=== PATIENT | male | born 1985 | race African-American/Black ===

== ENCOUNTER 2016-12-20 21:14 | Emergency (ER) | payer SELFPAY ==
[2016-12-20 21:26] VITALS: BP 129/66; PULSE 79; TEMP 97.8; BMI 27.2
[2016-12-20] MEDS ORDERED: NAPROXEN 500 MG TABLET (FP) PO ONE (21:39)
--- NOTE | 2016-12-20 21:39 | PDOC ---
History of Present Illness - General History Source: Patient Exam Limitations: No Limitations <Randee Enrique I - Last Filed: 12/20/16 21:42> - General History Source: Patient Exam Limitations: No Limitations <MatheusHelga - Last Filed: 12/20/16 21:45> - General Chief Complaint: Chest Pain Stated Complaint: CP Time Seen by Provider: 12/20/16 21:16 - History of Present Illness Initial Comments: 12/20/16 21:40 A portion of this note was documented by scribe services under my direction. I have reviewed the details of the note, within reason, and agree with the documentation. The case summary and management plan written by me. Assessment and plan: This is a 31-year-old male who comes in with 2 months of constant substernal chest pain that is worse when he leans over and sometimes worse when he takes deep breath but this was earlier on when he had the pain but not now. Patient denies any associated symptoms of nausea, diaphoresis or shortness of breath. Patient has not seen anybody for the pain or taken anything for the pain. Patient's exam was otherwise normal he was given Naprosyn and a referral to Dr. Dumont for follow-up. (Randee Enrique I ) 12/20/16 21:44 The patient is a 31 year old male, with no significant past medical history, who presents to the emergency department complaining of chest pain for approximately 2 months. The patient reports the pain is constant and localized to the lower sternal area. He reports when his pain first began it was pleuritic in nature. The patient reports the pain is exacerbated when bending over. He states he occasionally feels lethargic secondary to pain. The patient denies any associated shortness of breath, diaphoresis, or palpitations. The patient reports he has not taken anything for the pain or followed up with a primary care provider for evaluation. The patient denies any nausea, vomiting, diarrhea, constipation, or changes in urination patterns. The patient denies any fever, chills, cough, headache, or dizziness. PAST MEDICAL HISTORY: No significant history PAST SURGICAL HISTORY: No significant history FAMILY HISTORY: No pertinent history SOCIAL HISTORY: Pt lives with family and is employed. MEDICATIONS: Reviewed ALLERGIES: As per nursing notes General: Yes: +lethargy. No fevers or chills, no weakness, no weight loss HEENT: No change in vision. No sore throat. No ear pain CardioVascular: Yes: +chest pain. No shortness of breath Respiratory: No cough, or wheezing. Gastrointestinal: No nausea, vomiting, diarrhea or constipation. No rectal bleeding Genitourinary: No dysuria, hematuria, or frequency Musculoskeletal: No joint or muscle pain or swelling Neurologic: No headache, vertigo, dizziness or loss of consciousness Psychiatric: No depression Skin: No rashes or easy bruising Endocrine: no increased thirst or abnormal weight change Allergic: no skin or latex allergy All other systems reviewed and normal General: Well-nourished well-developed individual, no acute distress HEENT: Throat: Normal, tonsils normal, no erythema or exudate Neck: Supple, no meningeal signs, no lymphadenopathy Eyes: Pupils equal reactive and round, extraocular motion intact Chest: Pain is reproduced on palpation of the lower sternal area. Cardiac: S1-S2 normal, regular rate and rhythm, no murmurs rubs or gallops Respiratory: Lungs clear to auscultation bilateral Abdomen: Soft, nondistended, normal bowel sounds, nontender to palpation diffusely Extremities: Warm, dry, no cyanosis, clubbing, or edema Skin: No rashes Neuro: Alert and oriented x3, nonfocal exam, grossly intact, normal gait Psych: Normal mood and affect (Helga Jarvis) Past History - Psycho/Social/Smoking Cessation Hx Anxiety: No Suicidal Ideation: No Smoking History: Unknown if ever smoked Have you smoked in the past 12 months: No Number of Cigarettes Smoked Daily: 0 Information on smoking cessation initiated: No Hx Alcohol Use: No Drug/Substance Use Hx: No Substance Use Type: None <Randee Enrique I - Last Filed: 12/20/16 21:42> <Helga Jarvis - Last Filed: 12/20/16 21:45> - Past Medical History Allergies/Adverse Reactions: Allergies Allergy/AdvReac Type Severity Reaction Status Date / Time No Known Allergies Allergy Verified 05/28/16 23:32 Home Medications: Ambulatory Orders Naproxen [Naprosyn -] 500 mg PO BID #14 tablet 12/20/16 - Vital Signs Last Vital Signs Temp Pulse Resp BP Pulse Ox 97.8 F 79 14 129/66 100 12/20/16 21:22 12/20/16 21:22 12/20/16 21:22 12/20/16 21:22 12/20/16 21:22 - Medications Given in the ED: ED Medications Discontinued Medications Generic Name Dose Route Start Last Admin Trade Name Dorian PRN Reason Stop Dose Admin Naproxen 500 mg 12/20/16 21:39 12/20/16 21:42 Naprosyn - PO 12/20/16 21:40 500 mg ONCE ONE Administration *DC/Admit/Observation/Transfer - Discharge Dispostion Admit: No <Randee Enrique I - Last Filed: 12/20/16 21:42> <Helga Jarvis - Last Filed: 12/20/16 21:45> Diagnosis at time of Disposition: Chest wall pain - Discharge Dispostion Disposition: HOME Condition at time of disposition: Good - Prescriptions Prescriptions: Naproxen [Naprosyn -] 500 mg PO BID #14 tablet - Referrals Referrals: Niru Kilgore MD [Staff Physician] - - Patient Instructions Additional Instructions: For the pain take Naprosyn 1 tablet twice a day with food don't take on an empty stomach do this for 7 days. If after 7 days you're not improved follow-up with Dr. Dumont. Return to the emergency department immediately with ANY new, persistent or worsening symptoms. Continue any medications as previously prescribed by your physician. You should follow up with your primary doctor as soon as possible regarding today's emergency department visit. . Please make sure your doctor reviews the results of your emergency evaluation. Thank you for coming to the Emergency Department today for your care. It was a pleasure to see you today. Please note that your evaluation is INCOMPLETE until you follow-up with your doctor. - Attestations Scribe Attestion: 12/20/16 21:45 Documentation prepared by Helga Jarvis, acting as medical office receptionist assistant for Randee Enrique MD. (Helga Jarvis)
[2016-12-20] MEDS ORDERED: NAPROXEN 500 MG TABLET (FP) ONE (21:44)
== END 2016-12-20 21:45 | disposition home or self-care (01) ==
LOC: FER 21:14
DX: R07.89 Other chest pain (principal)
CPT/HCPCS: 99282-25

== ENCOUNTER 2017-01-20 00:50 | Emergency (ER) | payer SELFPAY ==
--- NOTE | 2017-01-20 00:52 | PDOC ---
History of Present Illness - General Chief Complaint: Pain, Acute Stated Complaint: BACK PAIN Time Seen by Provider: 01/20/17 00:52 History Source: Patient Exam Limitations: No Limitations - History of Present Illness Initial Comments: 01/20/17 01:12 This is a 31-year-old male who comes in complaining of left-sided back pain. Patient denies any associated symptoms of nausea or radiation. 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 Patient took one ibuprofen for the pain earlier in the day and otherwise has not taken anything for the pain. Patient denies history of similar pain in the past. Patient denies any urinary symptoms of frequency dysuria or hematuria. PAST MEDICAL HISTORY: no significant history PAST SURGICAL HISTORY: no significant history FAMILY HISTORY: no pertinant history SOCIAL HISTORY: Pt lives with family and is employed. MEDICATIONS: reviewed ALLERGIES: As per nursing notes Review of Systems General: No fevers or chills, no weakness, no weight loss HEENT: No change in vision. No sore throat,. No ear pain CardioVascular: No chest pain or shortness of breath Respiratory:No cough, or wheezing. Gastrointestinal: no nausea, vomitting, diarrhea or constipation, No rectal bleeding Genitourinary: No dysuria, hematuria, or frequency Musculoskeletal: + Back pain as per history of present illness Neurologic: No headache, vertigo, dizziness or loss of consciousness Psychiatric: nor depression Skin: No rashes or easy bruising Endocrine: no increased thirst or abnormal weight change Allergic: no skin or latex allergy All other systems reviewed and normal GENERAL: The patient is awake, alert, and fully oriented, in no acute distress. HEAD: Normal with no signs of trauma. EYES: Pupils equal, round and reactive to light, extraocular movements intact, sclera anicteric, conjunctiva clear. EXTREMITIES: Normal range of motion, no edema. BACK: There is some tenderness on palpation of the left lower back. There is no tenderness on palpation of the lumbar or sacral spine. Neurovascular distal is intact. NEUROLOGICAL: Normal speech, normal gait. PSYCH: Normal mood, normal affect. SKIN: Warm, Dry, normal turgor, no rashes or lesions noted. Assessment and plan: This is a 31-year-old male who comes in complaining of low back pain. Patient on exam has some tenderness of his left low back area. Patient denies any other complaints including any urinary symptoms. Patient given Toradol here in the emergency room and a prescription for Naprosyn was sent to his pharmacy. Past History - Past Medical History Allergies/Adverse Reactions: Allergies Allergy/AdvReac Type Severity Reaction Status Date / Time No Known Allergies Allergy Verified 05/28/16 23:32 Home Medications: Ambulatory Orders NK [No Known Home Medication] 01/20/17 - Psycho/Social/Smoking Cessation Hx Anxiety: No Suicidal Ideation: No Smoking History: Unknown if ever smoked Have you smoked in the past 12 months: No Number of Cigarettes Smoked Daily: 0 Hx Alcohol Use: No Drug/Substance Use Hx: No Substance Use Type: None *DC/Admit/Observation/Transfer Diagnosis at time of Disposition: Low back pain Qualifiers: Chronicity: acute Back pain laterality: left Sciatica presence: without sciatica Qualified Code(s): M54.5 - Low back pain - Discharge Dispostion Disposition: HOME Condition at time of disposition: Stable Admit: No - Patient Instructions Printed Discharge Instructions: Low Back Pain Additional Instructions: For the pain take Naprosyn 1 tablet twice a day for the next 7 days. If after 7 days you back is not improved follow up with your primary care doctor. Return to the emergency department immediately with ANY new, persistent or worsening symptoms. Continue any medications as previously prescribed by your physician. You should follow up with your primary doctor as soon as possible regarding today's emergency department visit. . Please make sure your doctor reviews the results of your emergency evaluation. Thank you for coming to the Emergency Department today for your care. It was a pleasure to see you today. Please note that your evaluation is INCOMPLETE until you follow-up with your doctor.
[2017-01-20] MEDS ORDERED: KETOROLAC TROMETHAMINE 60 MG/2 ML VIAL IM ONE ×2 (01:08→01:12)
[2017-01-20 01:09] VITALS: BP 120/77; PULSE 86; TEMP 97.9; BMI 28.0
== END 2017-01-20 01:35 | disposition home or self-care (01) ==
LOC: FER 00:50
PROC: 3E0233Z Introduction of Anti-inflammatory into Muscle, Percutaneous Approach (ICD-10-PCS; principal; 2017-01-20)
DX: M54.5 Low back pain (principal)
CPT/HCPCS: 99282-25

== ENCOUNTER 2017-05-25 18:59 | Emergency (ER) | payer OTHER ==
[2017-05-25 19:03] VITALS: BP 115/79; PULSE 68; TEMP 97.7; BMI 27.5
[2017-05-25] MEDS ORDERED: KETOROLAC TROMETHAMINE 60 MG/2 ML VIAL IM ONE (19:59)
--- NOTE | 2017-05-25 19:59 | PDOC ---
History of Present Illness - General History Source: Patient Exam Limitations: No Limitations - History of Present Illness Initial Comments: 05/25/17 20:09 The patient is a 31 year old male, with no significant past medical history, who presents to the emergency department complaining of diffuse back pain s/p twisting awkwardly during a basketball game. The patient reports he was playing basketball approx. one day ago when a teammate grabbed him and he twisted in an awkward direction and began experiencing back pain. The patient describes the back pain as diffuse and reports the back pain does not radiate. He states he initially took Motrin with mild relief last night, however, this morning the pain was progressively worse. The patient denies falling or trauma. He denies numbness, tingling or loss of sensation. He denies head injury or loss of consciousness. He denies chest pain or shortness of breath. Allergies: NKA Past surgical history: None reported. <Thad Vuong - Last Filed: 05/25/17 20:15> <Priti Lozano - Last Filed: 05/26/17 03:31> - General Chief Complaint: Back Pain Stated Complaint: BACK SPASMS Time Seen by Provider: 05/25/17 19:18 Past History <Thad Vuong - Last Filed: 05/25/17 20:15> - Past Medical History Other medical history: DENIES - Suicide/Smoking/Psychosocial Hx Smoking History: Never smoked Have you smoked in the past 12 months: No Number of Cigarettes Smoked Daily: 0 Hx Alcohol Use: No Drug/Substance Use Hx: No Substance Use Type: None <Priti Lozano - Last Filed: 05/26/17 03:31> - Past Medical History Allergies/Adverse Reactions: Allergies Allergy/AdvReac Type Severity Reaction Status Date / Time No Known Allergies Allergy Verified 05/28/16 23:32 Home Medications: Ambulatory Orders Diclofenac Sodium [Voltaren -] 75 mg PO BID PRN #14 tablet. 05/25/17 Tizanidine HCl [Zanaflex (Nf) -] 2 mg PO TID PRN #10 tablet 05/25/17 Review of Systems - Review of Systems Comments:: 05/25/17 20:09 CONSTITUTIONAL: Absent: fever, no chills, no fatigue EYES: Absent: visual changes ENT: Absent: ear pain, no sore throat CARDIOVASCULAR: Absent: chest pain, no palpitations RESPIRATORY: Absent: cough, no SOB GI: Absent: abdominal pain, no nausea, no vomiting, no constipation, no diarrhea GENITOURINARY: Absent: dysuria, no frequency, no hematuria MUSKULOSKELETAL: Present: +Back pain SKIN: Absent: rash NEURO: Absent: headache <Thad Vuong - Last Filed: 05/25/17 20:15> *Physical Exam - Vital Signs Last Vital Signs Temp Pulse Resp BP Pulse Ox 97.7 F 68 16 115/79 98 05/25/17 19:01 05/25/17 19:01 05/25/17 19:01 05/25/17 19:01 05/25/17 19:01 - Physical Exam Comments: 05/25/17 20:15 GENERAL: The patient is awake, alert, and fully oriented. HEAD:Normal with no signs of trauma. EYES: Pupils equal, round and reactive to light, extraocular movements intact, sclera anicteric, conjunctiva clear. BACK: +Mild midline point tenderness of mid lumbar spine. +Mild tenderness bilateral paraspinal muscles but no pain on straight leg raise. Motor sensory function is intact EXTREMITIES: Normal range of motion, no edema. NEUROLOGICAL: Normal speech, normal gait. PSYCH: Normal mood, normal affect. SKIN: Warm, Dry, normal turgor, no rashes or lesions noted. <Thad Vuong - Last Filed: 05/25/17 20:15> - Vital Signs Last Vital Signs Temp Pulse Resp BP Pulse Ox 97.7 F 68 16 115/79 98 05/25/17 19:01 05/25/17 19:01 05/25/17 19:01 05/25/17 19:01 05/25/17 19:01 <Priti Lozano - Last Filed: 05/26/17 03:31> ED Treatment Course - Medications Given in the ED: ED Medications Discontinued Medications Generic Name Dose Route Start Last Admin Trade Name Freq PRN Reason Stop Dose Admin Ketorolac Tromethamine 60 mg 05/25/17 19:59 05/25/17 20:04 Toradol Injection - IM 05/25/17 20:00 60 mg ONCE ONE Administration <Thad Vuong - Last Filed: 05/25/17 20:15> Progress Note - Progress Note Progress Note: Documentation has been prepared under my direction and personally reviewed by me in its entirety. I attest that this documented accurately reflects all work, treatment, procedures and medical decision making performed by me. <Priti Lozano - Last Filed: 05/26/17 03:31> Medical Decision Making - Medical Decision Making As noted above, this otherwise healthy 31-year-old man presents with midline lower back pain which began when patient twisted while playing basketball. Patient did not fall or otherwise impact his lower back. There are no symptoms in his buttocks or lower extremities. Exam as noted Patient given Toradol 60 mg IM for analgesia. Patient has significant relief of his pain after Toradol IM. Patient will be discharged with instructions to use [id number] nonsteroidal anti- inflammatories as needed for [id number] pain. Prescription for diclofenac 75 mg up to twice a day to be used for more severe pain. Also, patient will be given a small (#10) prescription for tizanidine 2 mg up to 3 times a day. Patient has been cautioned that this will make him sleepy and he should not drive or perform other activities requiring his full attention. Patient has appointment with chiropractor on Sunday, May 28. He will also be given referral for evaluation by orthopedic spine surgeon (Dr. Valentin). He should follow-up if he has persistent pain. He should return to ER if he has severe, persistent pain or develops lower extremity weakness/numbness/ paresthesias <Priti Lozano - Last Filed: 05/26/17 03:31> *DC/Admit/Observation/Transfer - Attestations Scribe Attestion: 05/25/17 20:15 Documentation prepared by Thad Vuong, acting as medical stenographer for Priti Lozano MD. <Thad Vuong - Last Filed: 05/25/17 20:15> <Priti Lozano - Last Filed: 05/26/17 03:31> Diagnosis at time of Disposition: Low back pain Qualifiers: Chronicity: acute Back pain laterality: midline Sciatica presence: without sciatica Qualified Code(s): M54.5 - Low back pain - Discharge Dispostion Disposition: HOME Condition at time of disposition: Stable - Prescriptions Prescriptions: Diclofenac Sodium [Voltaren -] 75 mg PO BID PRN #14 tablet.[address] DARBY Reason: Back Pain Tizanidine HCl [Zanaflex (Nf) -] 2 mg PO TID PRN #10 tablet PRN Reason: Muscle Spasms - Referrals Referrals: Lance Valentin MD [Staff Physician] - - Patient Instructions Printed Discharge Instructions: Low Back Pain Additional Instructions: Warm compresses to lower back Ibuprofen/naproxen/acetaminophen as needed for mild pain Diclofenac 75 mg twice a day as needed for moderate to severe pain (take with food) Can also use tizanidine 2 mg up to 3 times a day for back spasms (this will make you sleepy) Follow-up with your chiropractor on Sunday, May 28 as scheduled Follow-up with orthopedic spine surgeon (Dr. Valentin) within 1-2 weeks, especially if you have persistent mild pain Return to ER if you have severe pain or experience leg pain/weakness/numbness - Post Discharge Activity Forms/Work/School Notes: Back to Work
[2017-05-25] MEDS ORDERED: KETOROLAC TROMETHAMINE 60 MG/2 ML VIAL ONE (20:01)
== END 2017-05-25 21:10 | disposition home or self-care (01) ==
LOC: FER 18:59
PROC: 3E0233Z Introduction of Anti-inflammatory into Muscle, Percutaneous Approach (ICD-10-PCS; principal; 2017-05-25)
DX: M54.5 Low back pain (principal); X58.XXXA Exposure to other specified factors, initial encounter; Y93.67 Activity, basketball; Y92.9 Unspecified place or not applicable
CPT/HCPCS: 99282-25